=== PATIENT | female | born 1955 | race Caucasian/White ===

== ENCOUNTER → 2016-08-10 | Outpatient (CLI) | payer MEDICARE ==
[~2016-08-10] MED LIST: ACTONEL; ALBUTEROL1.25 MG/3 IH; AMOXICILLIN/CLA1 TA1 PO; BACTROBAN 22GM22 GM NAS; BACTROBAN NASA0.9 GM NAS; BENADRYL PO; BIRTH CONTROL PO; BONIVA PO; BONIVA150 MG PO; CALCIUM PO; CENTRUM1 TAB PO; CLINDAGEL; CLINDAGEL TP; COMBIVENT INH14.7 GM IH; DIFLUCAN PO; ESTRACE PO; ESTRACE1 MG PO; FLEXERIL PO; FOLIC ACID PO; FOLIC ACID1 MG PO; LEVOTHYROXINE0.1 MG PO; LEVOXYL PO; LEVOXYL0.075 MG PO; LORATADINE10 MG PO; METHOTREXA2.5 MG/TAB SQ; METHOTREXATE SQ; OLOPATADINE; PREDNISONE 5MG5 MG PO; PRILOSEC 20MG20 MG PO; SIMVASTATIN10 MG PO; SYSTANE LUBRICAN5 ML OP; TOBRAMYCIN; TOPAMAX 25MG25 M1 PO; TOPAMAX25 M1 PO; TRAMADOL50 MG PO; ULTRAM 50MG TAB50 MG PO; ZOLOFT100 MG PO
== END ==
LOC: MC.RAD 13:38
DX: Z12.31 Encounter for screening mammogram for malignant neoplasm of breast (principal)

== ENCOUNTER → 2016-12-21 | Outpatient (CLI) | payer MEDICARE | LOC: COL.RAD 10:29 | DX: J84.10 Pulmonary fibrosis, unspecified (principal); J98.4 Other disorders of lung | CPT/HCPCS: Q9967 ==

== ENCOUNTER → 2017-05-25 | Day surgery (SDC) | payer MEDICARE | LOC: COL.RAD 07:27 | DX: R11.0 Nausea (principal); R14.0 Abdominal distension (gaseous) | CPT/HCPCS: A9541 ==

== ENCOUNTER → 2018-01-28 | Outpatient (CLI) | payer MEDICARE | LOC: MC.RAD 14:01 | DX: Z12.31 Encounter for screening mammogram for malignant neoplasm of breast (principal) ==